=== PATIENT | female | born 1970 ===

== ENCOUNTER 2018-07-20 09:07 | Outpatient (CLI) | payer OTHER | END 2018-07-20 09:19 | disposition home or self-care (01) | LOC: RX STUDY 09:07 | DX: R13.10 Dysphagia, unspecified (principal) ==

== ENCOUNTER 2018-07-23 08:26 | Outpatient (CLI) | payer OTHER ==
[~2018-07-23] VITALS: Ht 157.5 cm; Wt 81.2 kg
== END 2018-07-23 08:50 | disposition home or self-care (01) ==
LOC: OFIC 805 08:26
DX: D10.4 Benign neoplasm of tonsil (principal); R13.19 Other dysphagia